=== PATIENT | male | born 1965 | race Two or more races ===

== ENCOUNTER 2016-07-02 15:26 | Day surgery (SDC) | payer OTHER ==
[~2016-07-02] VITALS: Ht 167.6 cm; Wt 83.6 kg
[2016-07-02] MEDS ORDERED: DICY10CA60 PO (15:57)
[2016-07-02] MEDS ORDERED: SIMV5TAB50 PO (15:57)
[2016-07-02] MEDS ORDERED: METF-480 PO (15:57)
[2016-07-02] MEDS ORDERED: LISI2.5T59 PO (15:57)
[2016-07-02 16:00] VITALS: BP 115/64; PULSE 62; RESP 18; Ht 167.6 cm; Wt 83.6 kg
[2016-07-02] MEDS ORDERED: MIDAZOLAM 1 MG/ML 2 ML INJ ONE ×2 (16:47→16:48)
[2016-07-02] MEDS ORDERED: FENTAnyl 50 MCG/ML VIAL ONE (16:47)
[2016-07-02 17:05] VITALS: BP 116/71; RESP 20
--- NOTE | 2016-07-02 20:37 | GILP ---
DATE OF PROCEDURE: NAME OF PROCEDURE: Colonoscopy. SURGEON: Pavel Wooten MD PREOPERATIVE DIAGNOSIS: Screening colonoscopy. POSTOPERATIVE DIAGNOSES 1. Colonoscopy all the way to the cecum. 2. Internal hemorrhoids. 3. No colon neoplasm was identified. INDICATION FOR THE PROCEDURE: Mr. Lucretia Valenzuela is a 50-year-old male patient who was scheduled for screening colonoscopy. The procedure and possible complications are well explained to the patient, he understood and consen beryl to the procedure. DESCRIPTION OF PROCEDURE: Under the influence of fentanyl and Versed, the colonoscope was carefully introduced into the rectum and under direct vision, it was advanced all the way to the cecum. FINDINGS: The patient was noted to have internal hemorrhoids. No colon neoplasm was identified. He tolerated the procedure very well and there was no complication from the procedure. At the end o f the procedure, he was awake with stable vital signs and he was discharged home to the care of his family. IMPRESSION: 1. Colonoscopy all the way to the cecum. 2. Internal hemorrhoids. 3. No colon neoplasm was identified. PLAN: Next screening colonoscopy in 10 years. Dictated By: PAVEL DOOLEY/JERONIMO Conf#: [id number] DID#: [id number] CC: PAVEL WOOTEN MD;*EndCC*
== END 2016-07-02 17:16 | disposition home or self-care (01) ==
LOC: GIL 15:26
PROVIDERS: ATTEND Internal Medicine Gastroenterology
DX: Z12.11 Encounter for screening for malignant neoplasm of colon (principal); K64.8 Other hemorrhoids; I10 Essential (primary) hypertension; E11.9 Type 2 diabetes mellitus without complications
CPT/HCPCS: 45378; 82962; J2250; J3010